=== PATIENT | female | born 1990 | race Caucasian/White ===

== ENCOUNTER → 2019-03-12 | Outpatient (CLI) | payer OTHER, SELFPAY ==
[2019-03-12 14:04] VITALS: BMI 22.3
[2019-03-12 16:21] LABS: Erythrocyte Sedimentation Rate 2 mm/hr (0-20)
[2019-03-12 16:53] LABS: CRP < 2.90 mg/L (0.0-3.0)
[2019-03-15 16:08] LABS: Endomysial Antibody IgA Negative (Negative)
[2019-03-16 17:19] LABS: Immunoglobulin A 151 mg/dL (87-352); t-Transglutaminase IgA <2 U/mL (0-3)
== END | disposition home or self-care (01) ==
PROVIDERS: Family Provider Family Medicine; PCP Family Medicine; Referring Provider Surgery; Visit Provider Surgery
DX: R10.9 Unspecified abdominal pain (principal)
CPT/HCPCS: 36415; 82784; 83516; 85652; 86140; 86255

== ENCOUNTER → 2019-03-19 08:58 | Outpatient (CLI) | payer OTHER, SELFPAY ==
[2019-03-12 14:04] VITALS: BMI 22.3
--- NOTE | 2019-03-19 08:59 | NM_ITS ---
CLINICAL: 28-year-old female with reported history of chronic nausea. SEMI-SOLID PHASE 99m Tc SULFUR COLLOID GASTRIC EMPTYING STUDY COMPARISON: None available FINDINGS: The patient was administered 1.1 mCi of 99m Tc sulfur colloid mixed with oatmeal and consumed per os. Image acquisitions in the anterior-posterior projections for a total of 60 minutes. There is prompt visualization of the stomach. There is no gastroesophageal reflux identified. First order kinetics are maintained throughout the duration of the acquisitions. The T1/2 linear fit was calculated to be 79.58 minutes, (Normal: 12-56 minutes). NM/Gastric Emptying Study IMPRESSION: 1. ABNORMAL 99m Tc sulfur colloid semi-solid phase (oatmeal) gastric emptying imaging examination. A. There is delayed semi-solid phase gastric emptying compared to normal controls with maintained first order kinetics throughout all components of the examination. (Manuel et al, J Nucl Med Tech 38: 186, 2010). Electronically Signed: Alonso Palmer DO at 23:12 EDT Tel , Service support ,
== END ==
LOC: NM 08:59
PROVIDERS: Family Provider Family Medicine; PCP Family Medicine; Referring Provider Surgery; Visit Provider Surgery
DX: R10.9 Unspecified abdominal pain (principal)
CPT/HCPCS: 78264; A9541

== ENCOUNTER → 2019-03-26 | Outpatient (CLI) | payer OTHER, SELFPAY ==
[2019-03-12 14:04] VITALS: BMI 22.3
--- NOTE | 2019-03-26 11:54 | NM_ITS ---
CLINICAL: 28 year old female with history of abdominal pain and nausea. RADIONUCLIDE HEPATOBILIARY SCINTIGRAPHY COMPARISON: None available FINDINGS: Following the intravenous administration of 5.4 mCi of 99m Tc Mebrofenin, hepatobiliary images reveal: 1. Relatively prompt and homogeneous radiopharmaceutical concentration is noted by a normal sized liver. No parenchymal defects are identified. 2. Gallbladder activity is identified at 15 minutes post radiopharmaceutical administration. 3. Small intestinal tract is observed at 60 minutes following tracer injection. 4. Washout of the radiopharmaceutical by the hepatic parenchyma appears qualitatively normal. Cholecystokinin (0.02 ug/kg) was administered intravenously over a 3-minute period. The post CCK gallbladder ejection fraction calculated at 20 minutes following Cholecystokinin administration was noted to be 48.0% (normal greater than 35%). During 30 minutes of post CCK imaging, there is no scintigraphic evidence of reflux of the radiotracer into the common hepatic duct or refilling of the gallbladder. NM/Hepatobilliary Img w/Pharm Int IMPRESSION: 1. NORMAL 99m Tc Mebrofenin hepatobiliary imaging examination with Cholecystokinin. A. A gallbladder ejection fraction calculated to be greater than 35% following the administration of Cholecystokinin makes the probability of functional hepatobiliary disease (gallbladder and/or sphincter of Oddi dyskinesia) and/or organic hepatobiliary disease (chronic acalculous cholecystitis and/or cystic duct syndrome) to be low. (Ghanshyam Hankins et al, Journal of Nuclear Medicine 32:1695, 1990). Electronically Signed: Alonso Palmer DO at 14:54 EDT Tel , Service support ,
== END | disposition home or self-care (01) ==
LOC: NM 11:52
PROVIDERS: Family Provider Family Medicine; PCP Family Medicine; Referring Provider Surgery; Visit Provider Surgery
DX: R10.9 Unspecified abdominal pain (principal)
CPT/HCPCS: 78227; A9537; J2805

== ENCOUNTER 2019-04-02 09:05 | Day surgery (SDC) | payer OTHER, SELFPAY ==
[2019-03-12 14:04] VITALS: BMI 22.3
--- NOTE | 2019-03-12 17:03 | HP_ITS ---
Intake Vital Signs 03/12/19 Height 5 ft 1 in 03/12/19 Weight: 118 lb 03/12/19 Body Mass Index (BMI) 22.3 03/12/19 Blood Pressure 109/68 03/12/19 Blood Pressure Location Rt brachial 03/12/19 Blood Pressure Position Sitting 03/12/19 Respiratory Rate 18 03/12/19 Pulse Rate 76 03/12/19 Pulse Source Monitor 03/12/19 Temperature 98.4 F 03/12/19 Temperature Source Oral 03/12/19 Pulse Ox 100 03/12/19 Oxygen Delivery Method room air Intake Visit Reasons: Ongoing Abdominal Pain & Nausea Tobacco Checkout Clerk Required: No Is patient in pain?: No Allergies azithromycin Allergy (Intermediate, Verified 03/12/19 14:07) itching Medications baclofen 20 mg tablet 20 mg PO TID 03/12/19 [History Confirmed 03/12/19] drospirenone 3 mg-ethinyl estradiol 0.03 mg tablet 1 tab PO DAILY 03/12/19 [History Confirmed 03/12/19] duloxetine 30 mg capsule,delayed release 30 mg PO DAILY 03/12/19 [History Confirmed 03/12/19] lactobacillus combination no.8 3 billion cell capsule 3,000 mmu cells PO DAILY 03/12/19 [History Confirmed 03/12/19] magnesium 250 mg tablet 250 mg PO DAILY 03/12/19 [History Confirmed 03/12/19] melatonin 10 mg capsule 10 mg PO HS PRN 03/12/19 [History Confirmed 03/12/19] naltrexone 50 mg tablet 50 mg PO DAILY 03/12/19 [History Confirmed 03/12/19] omeprazole 40 mg capsule,delayed release 40 mg PO DAILY 03/12/19 [History Confirmed 03/12/19] topiramate XR 50 mg capsule,extended release 24 hr 50 mg PO DAILY 03/12/19 [History Confirmed 03/12/19] PFSH Medical History Epigastric pain (Acute) Nausea and vomiting (Acute) Abdominal pain (Acute) Depression (Acute) Nausea (Acute) Surgical History History of tonsillectomy and adenoidectomy (Acute) History of wisdom tooth extraction (Acute) history excision right breast lesion (Acute) Family History Grandfather Cancer Prostate Mother Cancer tongue cancer Social History Smoking Status: Never smoker alcohol intake: current alcohol intake frequency: a few times a month substance use type: does not use HPI HPI HPI: DAMI WILLETT, is a 28 F who presents to the office today for HPI HPI Surgical H&P: Yes HPI: DAMI WILLETT, is a 28 F who presents to the office today for surgical consultation regarding nausea vomiting abdominal pain and diarrhea. Somewhat complex presentation. 28-year-old female who starting in September 2018 awoke with nausea. She would have occasional dry heaves and then bile reflux. Then she developed epigastric pain. Her initial thought was to check a test which was negative. She then was seen by a primary care physician Dr Jayy Guido on October 20, 2018. There did not appear to be any specific fatty food intolerance but the patient states that spicy foods in particular aggravate her problems. She was initiated on famotidine 40 mg daily and Zofran tablets. Her problems persisted. She had Carafate added to the regimen. The patient now admits that because of her multiple other medications she never was able to take the Carafate as prescribed 1 g before meals and at bedtime. Most she would be able to tolerate 3 doses per day. This apparently did not last very long. She states that she noted no improvement during that time. She states that drinking mitzy halle will sometimes help. She is also resorted to placing peppermint oil on her abdomen which helps. Eating very plain cereal or Cheerios will help. Because of chronic pain from fibromyalgia she had been on routine naproxen therapy. She is now changed to as acetaminophen therapy taking thousand milligrams of acetaminophen possibly 4-6 times per month. On November 16, 2018 she had a right upper quadrant ultrasound demonstrating a normal gallbladder and biliary system. A right renal cyst with septation 1.5 cm was identified. December 29, 2018 she was seen by Dr. Robbie Bullock. Apparently there is a question of Lyme disease. I diagnosis of gastritis was made. The patient states that she is never been a big eater. Possibly she has lost 5 pounds in weight. She has had a couple episodes of feeling shaky dizzy with cold sweats. Subsequently now she is developing episodes of diarrhea. She will awaken at night needing to move liquid bowels. She denies bright red blood per rectum or melena. Because of her ongoing epigastric pain nausea bilious emesis and now diarrhea she was referred for surgical consultation. ROS General General: Yes fatigue; no weight change, appetite, colon cancer, breast cancer or weakness HEENT HEENT: No difficulty swallowing, eye injury, eye surgery, swollen glands or hoarseness Endo Endocrine: No thyroid disease, diabetes mellitus, thyroid cancer, Hair loss, heat intolerance or cold intolerance Skin Skin: Yes changing moles; no rash Breast Breast: No left breast lump, right breast lump, nipple discharge, breast pain, abnormal mammogram, abnormal US or breast enlargement Musc Musculoskeletal: Yes back problems; no arthritis, rheumatoid arthritis, gout or joint pain Cardio Cardiovascular: No murmur, pacemaker, heart disease, atrial fibrillation, high blood pressure, heart attack, heart stent, palpitations, shortness of breat with exertion or chest pain Psych Psychiatric: Yes depression; no anxiety or hearing voices Resp Respiratory: No shortness of breath, No sleep apnea, No cough, No COPD, No asthma, No emphysema, No wheezing Gastro Gastrointestinal: Yes abdominal pain, Yes nausea or vomiting, Yes diarrhea, No constipation, No blood in stool, No acid reflux, No hemorrhoids, Yes ulcers, No gallbladder problem, No black,tarry stools Luke Hematologic: No blood thinners, No blood disorders, No bleeding, No anemia, No blood clots Neuro Neurologic: No system reviewed and no additional complaints, except as docu, No as per HPI, No abnormal walking, No abnormal hearing, No abnormal movements, No abnormal speech, No behavioral changes, No burning sensations, No confusion, No seizure-like activity, No unsteadiness, No dizziness, No localized weakness, No frequent falls, No headache(s), No lack of coordination, No loss of vision, No memory loss, No numbness, No other visual disturbances, No radiating pain, No restless legs, No sensory deficit, No fainting, No tingling, No tremor(s), No weakness, No other Exam Const General: cooperative, healthy appearing, comfortable, no acute distress Nutritional Appearance: average body habitus Orientation: alert, awake, oriented x3, oriented to person [facility] Head: normal to inspection Eyes General: appearance normal, both eyes and all related structures Chest Breast Palpation: No nipple discharge Resp Effort & Inspection: normal respiratory effort Cardio Rate: regular rate Rhythm: regular rhythm Heart Sounds: no murmurs GI Palpation: soft, no hepatosplenomegaly Percussion: normal to percussion Auscultation: normal bowel sounds Musc Cervical Spine: normal cervical lordosis Skin General: no rashes or lesions noted Neuro General: alert, awake Extrem General: no calf tenderness bilaterally Psych Affect: normal affect Assessment & Plan Problems 1. Nausea and vomiting, intractability of vomiting not specified, unspecified vomiting type R11.2 2. Epigastric pain R10.13 3. Diarrhea, unspecified type R19.7 Plan I explained to the patient that much of her symptoms seem to be gastroenterology in etiology but we will try to initiate the evaluation. The bilious emesis might suggest bile reflux gastritis. The nausea epigastric pain could be biliary dyskinesia. There is clearly the potential for gastric motility disorder perhaps aggravated by her fibromyalgia. Diarrhea does not sound bloody I suppose could be a problem with microcytic colitis. It is not clear to me whether she would have celiac disease or food related allergy. Might additionally be suspicious of eosinophilic esophagitis I recommend celiac laboratory profile I recommend a combined esophago-gastric duodenoscopy and colonoscopy with anticipated very careful inspection duodenal and gastric and esophageal biopsies as well as random colonic biopsies. I have described the technique, benefit, risk and alternatives. She has had an opting to ask and have questions answered. I recommend a CCK hepatobiliary scan I recommend a nuclear medicine gastric emptying study Pending this evaluation we can make further recommendations regarding potential for surgical treatment options or potential referral to gastroenterology. Patient is aware that I am investigating for potential organic etiology to her symptoms. Of course her findings may evolve into category of irritable bowel syndrome. She is additionally aware that I would at that point recommend referral to gastroneurology her primary care as well. She has had an opting to ask and have questions answered. We will try to facilitate her evaluation. I appreciate the opportunity of assisting with her surgical care. Mother is Vashti cc:Dr Alecia Mohr M.D., F.A.C.S. Medications New: lactobacillus combination no.8 (Adult Probiotic) 3,000 mmu cells PO DAILY naltrexone 50 mg PO DAILY baclofen 20 mg PO TID topiramate XR 50 mg PO DAILY duloxetine 30 mg PO DAILY melatonin 10 mg PO HS PRN magnesium 250 mg PO DAILY omeprazole 40 mg PO DAILY drospirenone-ethinyl estradiol 3-0.03 mg (Sharda (28)) 1 tab PO DAILY Coding Level of Care Code Off vis,new,level 4 Diagnoses Nausea and vomiting, intractability of vomiting not specified, unspecified vomiting type R11.2 ??Vomiting type: unspecified ??Vomiting Intractability: unspecified Epigastric pain R10.13 Diarrhea, unspecified type R19.7 ??Diarrhea type: unspecified type 03/12/19 [id number] <Electronically signed by Hamzah Mohr MD> Date Hamzah Mohr MD I have reviewed this patient's medical situation. She did have a nuclear medicine gastric emptying study demonstrating slowed gastric emptying. Plan to proceed with combined upper and lower endoscopy with directed biopsies as indicated. We had proposed prescribing erythromycin therapy however this was felt to be exorbitantly expensive. We will proceed with endoscopy and then further recommendations as appropriate. Hamzah Mohr M.D., F.A.C.S.
--- NOTE | 2019-04-02 | GASB_PTH ---
PATIENT: DAMI WILLETT LOC: [facility] U#:[id number] AGE/SX: 28/F ROOM: RE04/02/[address]: Dr. Hamzah Mohr MD : 1990 BED: DIS: 04/02/2019 SPEC #: [id number] RECD: 04/02/19 12:26 STATUS: CK HIRAL #: [id number] MACIEJ: 04/02/19 00:[address]: Hamzah Mohr DEPT: SURGICAL PATHOLOGY RECD BY: yMkel Casillas ENTERED: 04/02/19 12:28 SP TYPE: Gastric Bx OTHR DR: Dr. Greg Bullock DO Tissues: A - Gastric mucous membrane B - Duodenum, NOS C - Stomach, NOS D - Esophagus, NOS E - Esophagus, NOS F - COLON BIOPSY Procedures: Surgery Specimen Level IV HEADER OPERATION: Colonoscopy, EGD ([facility] [place]) PRE-OP DIAGNOSIS: Nausea, vomiting, epigastric pain, abdominal pain, diarrhea TISSUE SUBMITTED: A - Antral biopsy and H. pylori, B - Duodenal biopsy, C - Cardia polyp, D - Distal esophageal biopsy, E - Mid esophageal biopsy, F - Random colon biopsies MICROSCOPIC DIAGNOSIS A. Gastric antrum, biopsy: Mild chronic gastritis. See comment. B. Duodenum, biopsy: Nonspecific chronic inflammation. C. Gastric cardia polyp, biopsy: Fundic gland polyp. D. Distal esophagus, biopsy: No significant pathologic change. E. Mid esophagus, biopsy: No pathologic diagnosis. F. Colon, random biopsy: No pathologic diagnosis. AM:jeniffer 04/06/19 COMMENT A. The results of immunohistochemistry for Helicobacter pylori will be reported separately ([id number]). MICROSCOPIC DESCRIPTION Slides are reviewed. GROSS DESCRIPTION A - Received in fixative is one container labeled with the patient's name and designated gastric antrum. The specimen consists of one irregular fragment of light guzman soft tissue that measures 0.4 x 0.2 x 0.1 cm. The specimen is totally submitted in one cassette. B - Received in fixative is one container labeled with the patient's name and designated duodenal biopsy. The specimen consists of one irregular fragment of light guzman soft tissue that measures 0.3 x 0.3 x 0.1 cm. The specimen is totally submitted in one cassette. C - Received in fixative is one container labeled with the patient's name and designated cardia polyp. The specimen consists of one irregular fragment of light guzman soft tissue that measures 0.3 x 0.3 x 0.1 cm. The specimen is totally submitted in one cassette. D - Received in fixative is one container labeled with the patient's name and designated distal esophagus biopsy. The specimen consists of two irregular fragments of light guzman soft tissue that in aggregate measure 0.6 x 0.5 x 0.1 cm. The specimen is totally submitted in one cassette. E - Received in fixative is one container labeled with the patient's name and designated mid esophagus biopsy. The specimen consists of one irregular fragment of light guzman soft tissue that measures 0.2 x 0.2 x <0.1 cm. The specimen is totally submitted in one cassette. F - Received in fixative is one container labeled with the patient's name and designated random colon biopsy. The specimen consists of multiple irregular fragments of light guzman soft tissue that in aggregate measure 2 x 0.5 x 0.1 cm. The specimen is totally submitted in one cassette. / AM:jeniffer 04/02/19 TC:3 CPT: 59776 x6
[2019-04-02 09:26] VITALS: BP 124/74; PULSE 93; RESP 16; TEMP 36.4; O2SAT 100; BMI 21.4
[2019-04-02 09:31] LABS: Internal QC Validated? YES +Cl - CLEAR BKGD; Pregnancy, Urine Negative Negative
--- NOTE | 2019-04-02 10:00 | IMM_PTH ---
PATIENT: DAMI WILLETT LOC: [facility] U#:[id number] AGE/SX: 28/F ROOM: RE04/02/[address]: Dr. Hamzah Mohr MD : 1990 BED: DIS: 04/02/2019 SPEC #: [id number] RECD: 04/02/19 14:36 STATUS: CK RELetty #: [id number] MACIEJ: 04/02/19 10:[address]: Hamzah Mohr DEPT: IMMUNOHISTOCHEMISTRY RECD BY: Marleny Klein ENTERED: 04/02/19 14:37 SP TYPE: IMMUNO OTHR DR: Dr. Greg Bullock, Tissues: A - Stomach, NOS Procedures: H Pylori (initial) PHYSICIAN & INSTITUTION [place] [id number] SPECIMEN INFORMATION: Tissue Source: A - Antral biopsy Clinical Info: Nausea, vomiting, epigastric pain, abdominal pain, diarrhea Specimen Number: [id number] CPT code: 55164 METHODOLOGY: Deparaffinized sections of prefer/formalin-fixed tissue or PAP/DQ stained slides are incubated with monoclonal/polyclonal antibodies/oligonucleotide probes. Localization is made via biotin free immunoperoxidase method. Appropriate controls are performed and reacted as expected. Results on target cell population are indicated in the following table: RESULTS: ANTIBODY / CLONE RESULT Block A H Pylori (polyclonal) negative These tests were developed and their performance characteristics determined by [facility]. They may not have been cleared or approved by the U.S. Food and Drug Administration. The FDA has determined that such clearance or approval is not necessary. INTERPRETATION: A. Antral biopsy: Negative for Helicobacter pylori organisms. AM:jeniffer 04/06/19
[2019-04-02 11:18] VITALS: BP 104/70; BP 124/74; PULSE 78; RESP 16; TEMP 36; O2SAT 100
[2019-04-02 11:20] VITALS: BP 101/67; BP 124/74; PULSE 78; RESP 16; O2SAT 99
--- NOTE | 2019-04-02 11:22 | OP.ENDO_ITS ---
04/02/2019 Greg Bullock Re : Upper GI endoscopy procedure for Darleen Quintana Dear Kobe This procedure was performed on Tuesday, April 02, 2019. My impressions and recommendations are as follows: Impressions : - Normal esophagus. - Z-line regular, 40 cm from the incisors. Biopsied. Mid esophagus normal in appearance and biopsied. - A single gastric polyp. Resected and retrieved. - Erythematous mucosa in the antrum. Biopsied. Small amount of bile within the stomach noted. - Normal examined duodenum. Biopsied. Recommendations : - Discharge patient to home. - Resume previous diet. - Continue present medications. - Telephone my office for pathology results in 1 week. My findings are described in the full procedure note, which is enclosed. If I can be of further assistance, please feel free to contact me at Doctor phone number(s): Work: . Sincerely, Hamzah Mohr MD 04/02/2019 11:21:44 AM This report has been signed electronically.
[2019-04-02 11:25] VITALS: BP 104/61; BP 124/74; PULSE 79; RESP 16; O2SAT 100
--- NOTE | 2019-04-02 11:25 | OP.ENDO_ITS ---
04/02/2019 Greg Bullock Re : Colonoscopy procedure for Darleen Silvar Kobe This procedure was performed on Tuesday, April 02, 2019. My impressions and recommendations are as follows: Impressions : - The entire examined colon is normal. - Biopsies were taken with a cold forceps from the entire colon for evaluation of microscopic colitis. Recommendations : - Discharge patient to home. - Resume previous diet. - Continue present medications. - Repeat colonoscopy at age 49 to be scheduled for screening purposes. - Telephone my office for pathology results in 1 week. My findings are described in the full procedure note, which is enclosed. If I can be of further assistance, please feel free to contact me at Doctor phone number(s): Work: . Sincerely, Hamzah Mohr MD 04/02/2019 11:24:40 AM This report has been signed electronically.
[2019-04-02 11:29] VITALS: BP 108/72; BP 124/74; PULSE 81; RESP 16; TEMP 36.2; O2SAT 100
[2019-04-02 11:55] VITALS: BP 124/74
== END 2019-04-02 11:59 | disposition home or self-care (01) ==
LOC: EN 09:05 → AC 09:06
PROVIDERS: Anesthesiology; Family Provider Family Medicine; PCP Family Medicine; Referring Provider Surgery; Visit Provider Surgery
PROC: 0DJD8ZZ Inspection of Lower Intestinal Tract, Via Natural or Artificial Opening Endoscopic (ICD-10-PCS; CPT 45378; principal; 2019-04-02 09:55)
DX: K29.50 Unspecified chronic gastritis without bleeding (principal); K29.80 Duodenitis without bleeding; K31.7 Polyp of stomach and duodenum; F32.9 Major depressive disorder, single episode, unspecified; K21.9 Gastro-esophageal reflux disease without esophagitis; Z87.442 Personal history of urinary calculi; Z79.899 Other long term (current) drug therapy
CPT/HCPCS: 43239; 45380; 81025; 88305; 88342; J7120; J2405